=== PATIENT | male | born 1960 | race Hispanic/Latino ===

== ENCOUNTER 2021-02-02 12:00 | Emergency (ER) | payer BC, SELFPAY | END 2021-02-02 14:05 | disposition home or self-care (01) | LOC: MADERS 12:00 | DX: S00.93XA Contusion of unspecified part of head, initial encounter (principal); Z87.891 Personal history of nicotine dependence; W20.8XXA Other cause of strike by thrown, projected or falling object, initial encounter | CPT/HCPCS: 70450; 72125 ==

== ENCOUNTER 2021-09-18 18:49 | Emergency (ER) | payer BC | END 2021-09-18 19:38 | disposition home or self-care (01) | LOC: MADERS 18:49 | DX: S62.312A Displaced fracture of base of third metacarpal bone, right hand, initial encounter for closed fracture (principal); Z87.891 Personal history of nicotine dependence; Z79.82 Long term (current) use of aspirin; W22.8XXA Striking against or struck by other objects, initial encounter | CPT/HCPCS: 26720 ==

== ENCOUNTER 2022-10-12 03:59 | Emergency (ER) | payer BC, SELFPAY ==
[2022-10-12] MEDS ORDERED: Fluorescein Opthalmic Strip ONE (04:23)
[2022-10-12] MEDS ORDERED: Tetracaine 0.5% PF 4 ML BOT ONE (04:23)
[2022-10-12] MEDS ORDERED: Erythromycin Base 0.5% Ophth Oint 3.5 gm Tube ONE (04:39)
[2022-10-12] MEDS ORDERED: Boostrix 0.5 ML (Tdap) VIAL (>/=7 yrs of age) ONE (04:39)
== END 2022-10-12 04:55 | disposition home or self-care (01) ==
LOC: MADERS 03:59
DX: T15.11XA Foreign body in conjunctival sac, right eye, initial encounter (principal); H11.003 Unspecified pterygium of eye, bilateral; Z87.891 Personal history of nicotine dependence; X58.XXXA Exposure to other specified factors, initial encounter
CPT/HCPCS: 65205; 90471; 90715